=== PATIENT | male | born 1980 | race Hispanic/Latino ===

== ENCOUNTER 2022-02-04 12:47 | Inpatient (IN) | payer OTHER ==
[2022-02-04] VITALS (14 sets, daily range): BP systolic 115–136; BP diastolic 62–80
[~2022-02-04] VITALS: Ht 175.3 cm; Wt 106.6 kg
[2022-02-04] MEDS ORDERED: SODIUM CHLORIDE 0.9% 250ML 250 ML IV NR (13:45)
[2022-02-04] MEDS ORDERED: FUROSEMIDE INJ 10 MG/ML 4 ML VIAL IV NR (13:45)
[2022-02-04 14:36] LABS: ALBUMIN/GLOBULIN RATIO 1.3 (0.8-2.0); ANION GAP 14.2 mmol/L (8-16); CALCIUM 8.6 mg/dL (8.4-10.2); CREATININE, SERUM 0.93 mg/dL (0.72-1.25); POTASSIUM 4.2 mmol/L (3.5-5.1)
[2022-02-04 14:47] LABS: BASOPHILS % 0.2 % (0.0-1.0); EOSINOPHILS # (AUTO) 0.1 (0.0-0.4); EOSINOPHILS % 1.2 % (0.0-6.0); LYMPHOCYTES # (AUTO) 1.2 (1.0-3.2); LYMPHOCYTES % 20.4 % (18.0-39.1); MEAN CORPUSCULAR HEMOGLOBIN 14.4 pg (28-32); MEAN CORPUSCULAR HGB CONC 24.6 g/dL (31-35); MEAN CORPUSCULAR VOLUME 58.3 fL (81-99); MONOCYTES # (AUTO) 0.6 (0.2-0.8); MONOCYTES % 9.7 % (4.4-11.3); NEUTROPHILS % 67.8 % (38.7-80.0); PLATELET COUNT 762 x10e3/uL (140-360); RED BLOOD COUNT 2.16 x10e6/uL (4.3-5.7); RED CELL DISTRIBUTION WIDTH 24.9 % (11.7-14.4)
[2022-02-04 14:50] LABS: HEMATOCRIT 12.6 % (38.2-49.6); HEMOGLOBIN 3.1 g/dL (14.0-18.0)
[2022-02-04 17:36] LABS: % IRON SATURATION 2 % (15-50); IRON 10 ug/dL (65-175); LACTATE DEHYDROGENASE 146 IU/L (125-220); TOTAL IRON BINDING CAPACITY 587 ug/dL (261-478); TRANSFERRIN 419 mg/dL (174-364)
[2022-02-04 18:18] LABS: FERRITIN < 1.00 ng/mL (21.81-274.66)
[2022-02-05] VITALS (33 sets, daily range): BP systolic 114–142; BP diastolic 59–92
[2022-02-05 02:38] LABS: HEMATOCRIT 20.4 % (38.2-49.6); HEMOGLOBIN 5.7 g/dL (14.0-18.0)
[2022-02-05] MEDS ORDERED: SODIUM CHLORIDE 0.9% 250ML 250 ML IV PRN (03:00)
[2022-02-05] MEDS ORDERED: SODIUM CHLORIDE 0.9% 250ML 250 ML IV ONE (07:45)
[2022-02-05] MEDS: CYANOCOBALAMIN INJ 1,000 MCG/ML VIAL IM SCH (08:14)
[2022-02-05] MEDS: DOCUSATE SODIUM 100 MG CAP PO SCH (08:14)
[2022-02-05] MEDS: SENNOSIDES 8.6 MG TAB PO SCH (08:14)
[2022-02-05] MEDS: IRON SUCROSE 100 MG in SODIUM CHLORIDE 0.9% 100 ML IV SCH (08:33)
[2022-02-05 10:33] LABS: BASOPHILS % 0.4 % (0.0-1.0); EOSINOPHILS % 0.6 % (0.0-6.0); HEMATOCRIT 23.9 % (38.2-49.6); HEMOGLOBIN 7.3 g/dL (14.0-18.0); LYMPHOCYTES # (AUTO) 0.9 (1.0-3.2); LYMPHOCYTES % 12.2 % (18.0-39.1); MEAN CORPUSCULAR HGB CONC 30.5 g/dL (31-35); MEAN CORPUSCULAR VOLUME 68.7 fL (81-99); MONOCYTES # (AUTO) 0.7 (0.2-0.8); MONOCYTES % 9.5 % (4.4-11.3); NEUTROPHILS # (AUTO) 5.3 (2.1-6.9); NEUTROPHILS % 75.9 % (38.7-80.0); PLATELET COUNT 650 x10e3/uL (140-360); RED BLOOD COUNT 3.48 x10e6/uL (4.3-5.7); RED CELL DISTRIBUTION WIDTH 29.4 % (11.7-14.4)
[2022-02-05] MEDS ORDERED: PEG (High)/E-LYTE SOLN 4,000 ML BTL PO ONE (10:45)
[2022-02-05 10:50] LABS: ALBUMIN 3.9 g/dL (3.5-5.0); ALBUMIN/GLOBULIN RATIO 1.3 (0.8-2.0); ANION GAP 15.1 mmol/L (8-16); CALCIUM 8.6 mg/dL (8.4-10.2); CREATININE, SERUM 0.92 mg/dL (0.72-1.25); MAGNESIUM 2.2 MG/DL (1.3-2.1); POTASSIUM 4.1 mmol/L (3.5-5.1)
[2022-02-05 12:25] LABS: LYMPHOCYTES % (MANUAL) 9 % (19-48); METAMYELOCYTES % (MANUAL) 1 % (0-0); NEUTROPHILS % (MANUAL) 89 % (40-74)
[2022-02-05 12:26] LABS: HYPOCHROMASIA MODE; MICROCYTOSIS MODE; POLYCHROMASIA FEW
[2022-02-05 12:27] LABS: POIKILOCYTOSIS MODERATE
[2022-02-05 12:28] LABS: ANISOCYTOSIS MODE; RBC MORPHOLOGY COMMENT ABNORMAL
[2022-02-05 12:29] LABS: PLATELET ESTIMATE ADEQUATE; PLATELET MORPHOLOGY COMMENT FEW LARGE
[2022-02-05 16:44] LABS: HEMATOCRIT 25.6 % (38.2-49.6); HEMOGLOBIN 7.5 g/dL (14.0-18.0)
[2022-02-05 19:20] LABS: HEMATOCRIT 26.4 % (38.2-49.6); HEMOGLOBIN 7.8 g/dL (14.0-18.0)
[2022-02-05] MEDS ORDERED: BISACODYL 5 MG TAB EC PO ONE ×2 (23:00→23:30)
[2022-02-06] VITALS (25 sets, daily range): BP systolic 93–132; BP diastolic 53–104
[2022-02-06 03:23] LABS: HEMATOCRIT 26.6 % (38.2-49.6); HEMOGLOBIN 7.7 g/dL (14.0-18.0)
[2022-02-06 07:10] LABS: BASOPHILS % 0.6 % (0.0-1.0); EOSINOPHILS # (AUTO) 0.2 (0.0-0.4); EOSINOPHILS % 2.9 % (0.0-6.0); HEMATOCRIT 25.5 % (38.2-49.6); HEMOGLOBIN 7.6 g/dL (14.0-18.0); LYMPHOCYTES # (AUTO) 1.2 (1.0-3.2); LYMPHOCYTES % 17.6 % (18.0-39.1); MEAN CORPUSCULAR HEMOGLOBIN 20.7 pg (28-32); MEAN CORPUSCULAR HGB CONC 29.8 g/dL (31-35); MEAN CORPUSCULAR VOLUME 69.3 fL (81-99); MONOCYTES # (AUTO) 0.7 (0.2-0.8); NEUTROPHILS # (AUTO) 4.7 (2.1-6.9); NEUTROPHILS % 68.2 % (38.7-80.0); PLATELET COUNT 669 x10e3/uL (140-360); RED BLOOD COUNT 3.68 x10e6/uL (4.3-5.7); RED CELL DISTRIBUTION WIDTH 29.2 % (11.7-14.4)
[2022-02-06 07:46] LABS: ALBUMIN 4.1 g/dL (3.5-5.0); ALBUMIN/GLOBULIN RATIO 1.5 (0.8-2.0); CALCIUM 9.1 mg/dL (8.4-10.2); CREATININE, SERUM 0.98 mg/dL (0.72-1.25); MAGNESIUM 2.3 MG/DL (1.3-2.1)
[2022-02-06] MEDS: CYANOCOBALAMIN INJ 1,000 MCG/ML VIAL IM SCH (08:30)
[2022-02-06] MEDS: IRON SUCROSE 100 MG in SODIUM CHLORIDE 0.9% 100 ML IV SCH (08:30)
[2022-02-06] MEDS: DOCUSATE SODIUM 100 MG CAP PO SCH (08:46)
[2022-02-06] MEDS: SENNOSIDES 8.6 MG TAB PO SCH (08:46)
[2022-02-06 10:17] LABS: ELLIPTOCYTE, RBC SLIGHT; RBC MORPHOLOGY COMMENT ABNORMAL
[2022-02-06 10:18] LABS: ANISOCYTOSIS MODERATE; MICROCYTOSIS MODERATE; POIKILOCYTOSIS SLIGHT
[2022-02-06 10:19] LABS: HYPOCHROMASIA SLIGHT; PLATELET MORPHOLOGY COMMENT NORMAL
[2022-02-06 10:20] LABS: PLATELET ESTIMATE MODERATELY INCREASED
[2022-02-06 11:27] LABS: HEMATOCRIT 26.6 % (38.2-49.6); HEMOGLOBIN 7.6 g/dL (14.0-18.0)
[2022-02-06] MEDS ORDERED: HYOSCYAMINE SULFATE 0.5 MG/ML INJ ONE (13:54)
[2022-02-06] MEDS ORDERED: PROPOFOL IV EMULSION 10 MG/ML 20 ML VIAL ONE (13:54)
[2022-02-06 19:49] LABS: HEMATOCRIT 25.8 % (38.2-49.6); HEMOGLOBIN 7.3 g/dL (14.0-18.0)
[2022-02-07] VITALS (11 sets, daily range): BP systolic 110–125; BP diastolic 67–79
[2022-02-07 03:06] LABS: HEMATOCRIT 26.8 % (38.2-49.6); HEMOGLOBIN 7.7 g/dL (14.0-18.0)
[2022-02-07 06:54] LABS: BASOPHILS % 0.2 % (0.0-1.0); EOSINOPHILS # (AUTO) 0.3 (0.0-0.4); EOSINOPHILS % 4.1 % (0.0-6.0); HEMATOCRIT 25.8 % (38.2-49.6); HEMOGLOBIN 7.5 g/dL (14.0-18.0); LYMPHOCYTES # (AUTO) 1.4 (1.0-3.2); LYMPHOCYTES % 17.5 % (18.0-39.1); MEAN CORPUSCULAR HEMOGLOBIN 20.4 pg (28-32); MEAN CORPUSCULAR HGB CONC 29.1 g/dL (31-35); MEAN CORPUSCULAR VOLUME 70.3 fL (81-99); MONOCYTES # (AUTO) 0.7 (0.2-0.8); MONOCYTES % 8.6 % (4.4-11.3); NEUTROPHILS # (AUTO) 5.5 (2.1-6.9); PLATELET COUNT 602 x10e3/uL (140-360); RED BLOOD COUNT 3.67 x10e6/uL (4.3-5.7); RED CELL DISTRIBUTION WIDTH 30.3 % (11.7-14.4)
[2022-02-07 07:28] LABS: ALBUMIN 3.6 g/dL (3.5-5.0); ALBUMIN/GLOBULIN RATIO 1.4 (0.8-2.0); CALCIUM 8.6 mg/dL (8.4-10.2); CREATININE, SERUM 1.04 mg/dL (0.72-1.25)
[2022-02-07] MEDS: CYANOCOBALAMIN INJ 1,000 MCG/ML VIAL IM SCH (08:25)
[2022-02-07] MEDS: DOCUSATE SODIUM 100 MG CAP PO SCH (08:25)
[2022-02-07] MEDS: SENNOSIDES 8.6 MG TAB PO SCH (08:25)
[2022-02-07] MEDS: IRON SUCROSE 100 MG in SODIUM CHLORIDE 0.9% 100 ML IV SCH (08:25)
== END 2022-02-07 10:55 | disposition home or self-care (01) | DRG 378 ==
LOC: ICU 13:05
PROVIDERS: ADMIT Internal Medicine; ATTEND Internal Medicine
PROC: 30233N1 Transfusion of Nonautologous Red Blood Cells into Peripheral Vein, Percutaneous Approach (ICD-10-PCS; 2022-02-04)
PROC: 0DJD8ZZ Inspection of Lower Intestinal Tract, Via Natural or Artificial Opening Endoscopic (ICD-10-PCS; principal; 2022-02-06 12:07)
PROC: 0DB78ZX Excision of Stomach, Pylorus, Via Natural or Artificial Opening Endoscopic, Diagnostic (ICD-10-PCS; 2022-02-06 12:07)
DX: K57.31 Diverticulosis of large intestine without perforation or abscess with bleeding (principal); D62 Acute posthemorrhagic anemia; K64.8 Other hemorrhoids; D69.6 Thrombocytopenia, unspecified; D50.9 Iron deficiency anemia, unspecified; Z20.822 Contact with and (suspected) exposure to COVID-19; I50.83 High output heart failure; E66.09 Other obesity due to excess calories; Z68.34 Body mass index [BMI] 34.0-34.9, adult; Z86.16 Personal history of COVID-19
CPT/HCPCS: 36415; 43239; 45378; 71045; 80053; 82607; 82728; 82746; 83010; 83540; 83605; 83615; 83735; 83880; 84466; 84484; 85014; 85018; 85025; 85045; 86850; 86880; 86900; 86920; 88305; 88312; 88342; 93005; J1756; J1940; J1980; J3420; J7050; P9016